=== PATIENT | female | born 1960 | race African-American/Black ===

== ENCOUNTER 2021-10-10 09:58 | Emergency (ER) | payer MEDICAID ==
[~2021-10-10] VITALS: Ht 152.4 cm; Wt 84.0 kg
[2021-10-10] MEDS ORDERED: [UNRECOGNIZED DRUG - OTHER] (10:11)
[2021-10-10] MEDS ORDERED: OMEP20TA2 PO (10:11)
[2021-10-10] MEDS ORDERED: LEVO50TA8 PO (10:11)
[2021-10-10] MEDS ORDERED: RIBO600T PO (10:11)
[2021-10-10] MEDS ORDERED: GABA-532 PO (10:11)
[2021-10-10] MEDS ORDERED: DICL50TA7 PO (10:11)
[2021-10-10] MEDS ORDERED: AMLO25PO MC (10:11)
[2021-10-10 13:00] LABS: BASOPHILS % 2.3 % (0.0-2.0); EOSINOPHILS % 0.9 % (0.0-5.0); HEMATOCRIT. 35.4 % (36.0-48.0); LYMPHOCYTES % 15.8 % (20.0-50.0); MEAN CORPUSCULAR HEMOGLOBIN 33.1 pg (28.0-32.0); MEAN CORPUSCULAR VOLUME 97.7 fL (81.0-99.0); MEAN PLATELET VOLUME 6.1 fl (7.4-10.4); MONOCYTES % 11.2 % (2.0-8.0); NEUTROPHILS % 69.8 % (40.0-76.0); PLATELET 544 x1000/uL (130-400); RED BLOOD CELL COUNT 3.62 mill/uL (4.2-5.4); RED CELL DISTRIBUTION WIDTH 18.3 % (11.6-14.6)
[2021-10-10 13:03] LABS: CHLORIDE 102 mEq/L (98-107)
[2021-10-10 15:40] VITALS: BP 127/87
== END 2021-10-10 15:42 | disposition home or self-care (01) ==
LOC: ER 09:58
DX: M79.89 Other specified soft tissue disorders (principal); M79.621 Pain in right upper arm; E03.9 Hypothyroidism, unspecified; I10 Essential (primary) hypertension; Z90.11 Acquired absence of right breast and nipple; Z85.3 Personal history of malignant neoplasm of breast; Z92.21 Personal history of antineoplastic chemotherapy
CPT/HCPCS: 36415; 80053; 85025; 93970; 99284